=== PATIENT | female | born 1940 | race Caucasian/White ===

== ENCOUNTER 2017-08-15 09:12 | Emergency (ER) | payer OTHER ==
[~2017-08-15] VITALS: Ht 152.4 cm; Wt 65.3 kg
[~2017-08-15 09:12] MED LIST: ANTIVERT 12.5MG TAB PO; ANTIVERT12.5 MG PO; ASA 325MG EC TAB PO; ASA81 MG PO; COZAAR25 MG PO; COZAAR50 MG PO; CRESTOR10 MG PO; LIPITOR20 MG PO; PLAVIX 75MG PO; PLAVIX75 MG PO; TESSALON PERLE100 MG PO; TUSSI PRES-B L120 M1 PO; XANAX0.25 MG PO; ZITHROMAX TRI-500 MG PO
== END 2017-08-15 11:52 | disposition home or self-care (01) ==
LOC: ER 09:12
DX: M25.562 Pain in left knee (principal)

== ENCOUNTER 2017-10-16 09:28 | Emergency (ER) | payer OTHER ==
[~2017-10-16] VITALS: Ht 152.4 cm; Wt 56.7 kg
[2017-10-16] MEDS ORDERED: ATORVASTATIN CA10 MG (09:33)
== END 2017-10-16 14:31 | disposition home or self-care (01) ==
LOC: ER 09:28
DX: I95.9 Hypotension, unspecified (principal)

== ENCOUNTER 2018-05-02 09:45 | Outpatient (CLI) | payer OTHER ==
[~2018-05-02 09:45] MED LIST changes: +ATORVASTATIN CA10 MG
== END 2018-05-02 10:10 | disposition home or self-care (01) ==
LOC: SONOGRAMA 09:45
DX: R10.84 Generalized abdominal pain (principal)

== ENCOUNTER 2018-05-10 12:04 | Outpatient (CLI) | payer OTHER | END 2018-05-10 12:09 | disposition home or self-care (01) | LOC: LAB 12:04 | DX: R10.84 Generalized abdominal pain (principal); R63.4 Abnormal weight loss; Z51.81 Encounter for therapeutic drug level monitoring ==

== ENCOUNTER 2018-05-12 07:30 | Outpatient (CLI) | payer OTHER | END 2018-05-12 07:36 | disposition home or self-care (01) | LOC: TOM 07:30 | DX: R10.84 Generalized abdominal pain (principal); R63.4 Abnormal weight loss; K52.9 Noninfective gastroenteritis and colitis, unspecified; R93.2 Abnormal findings on diagnostic imaging of liver and biliary tract | CPT/HCPCS: 74160; Q9965 ==

== ENCOUNTER 2019-09-07 09:01 | Outpatient (CLI) | payer OTHER | END 2019-09-07 09:09 | disposition home or self-care (01) | LOC: MAMO-SONO 09:01 | DX: N63.11 Unspecified lump in the right breast, upper outer quadrant (principal); Z12.31 Encounter for screening mammogram for malignant neoplasm of breast; Z87.898 Personal history of other specified conditions ==

== ENCOUNTER 2019-11-15 09:03 | Outpatient (CLI) | payer OTHER | END 2019-11-15 09:08 | disposition home or self-care (01) | LOC: NUCLEAR 09:03 | DX: M81.0 Age-related osteoporosis without current pathological fracture (principal) ==

== ENCOUNTER 2020-11-11 15:22 | Emergency (ER) | payer OTHER ==
[~2020-11-11] VITALS: Ht 162.6 cm; Wt 81.6 kg
== END 2020-11-11 22:33 | disposition home or self-care (01) ==
LOC: ER 15:22
DX: R55 Syncope and collapse (principal); R11.2 Nausea with vomiting, unspecified; R53.1 Weakness; R06.02 Shortness of breath; G30.8 Other Alzheimer's disease; F02.80 Dementia in other diseases classified elsewhere, unspecified severity, without behavioral disturbance, psychotic disturbance, mood disturbance, and anxiety

== ENCOUNTER 2020-12-18 07:49 | Outpatient (CLI) | payer OTHER | END 2020-12-18 07:59 | disposition home or self-care (01) | LOC: RAD 07:49 | PROVIDERS: ATTEND Internal Medicine Gastroenterology | DX: K30 Functional dyspepsia (principal) ==

== ENCOUNTER 2021-01-21 08:43 | Emergency (ER) | payer OTHER ==
[~2021-01-21] VITALS: Ht 157.5 cm; Wt 63.5 kg
[2021-01-21] MEDS ORDERED: DIOVAN40 MG (08:56)
[2021-01-21] MEDS ORDERED: LIPITOR40 M1 (08:57)
[2021-01-21] MEDS ORDERED: COZAAR100 MG (08:57)
[2021-01-21] MEDS ORDERED: TOPROL XL50 M1 (08:57)
[2021-01-21] MEDS ORDERED: AMLOD-VALSA-HC1 EACH (08:58)
[2021-01-21] MEDS ORDERED: CIPRO500 MG PO (13:27)
== END 2021-01-21 13:54 | disposition home or self-care (01) ==
LOC: ER 08:43 → CPU-OBS 09:37 → ER 13:54
DX: R42 Dizziness and giddiness (principal); R51.9 Headache, unspecified; I10 Essential (primary) hypertension

== ENCOUNTER 2021-09-10 11:32 | Emergency (ER) | payer OTHER ==
[~2021-09-10] VITALS: Ht 149.9 cm; Wt 57.6 kg
[~2021-09-10 11:32] MED LIST changes: +AMLOD-VALSA-HC1 EACH; +CIPRO500 MG PO; +COZAAR100 MG; +DIOVAN40 MG; +LIPITOR40 M1; +TOPROL XL50 M1
== END 2021-09-10 19:31 | disposition home or self-care (01) ==
LOC: ER 11:32
DX: R07.9 Chest pain, unspecified (principal)

== ENCOUNTER 2023-01-21 09:15 | Emergency (ER) | payer OTHER ==
[~2023-01-21] VITALS: Ht 152.4 cm; Wt 63.5 kg
== END 2023-01-21 14:27 | disposition home or self-care (01) ==
LOC: ER 09:15
DX: K52.89 Other specified noninfective gastroenteritis and colitis (principal); E11.9 Type 2 diabetes mellitus without complications; I10 Essential (primary) hypertension
CPT/HCPCS: 36415; 93005; 96365; 99283; J3490

== ENCOUNTER 2023-04-06 10:53 | Emergency (ER) | payer OTHER ==
[~2023-04-06] VITALS: Ht 152.4 cm; Wt 59.9 kg
== END 2023-04-06 20:21 | disposition home or self-care (01) ==
LOC: ER 10:53
DX: S00.03XA Contusion of scalp, initial encounter (principal); W18.30XA Fall on same level, unspecified, initial encounter; Y93.9 Activity, unspecified; Y92.019 Unspecified place in single-family (private) house as the place of occurrence of the external cause; Y99.9 Unspecified external cause status

== ENCOUNTER 2023-04-19 08:58 | Outpatient (CLI) | payer OTHER | END 2023-04-19 09:04 | disposition home or self-care (01) | LOC: TOM 08:58 | PROVIDERS: ATTEND Internal Medicine Gastroenterology | DX: R10.9 Unspecified abdominal pain (principal) ==

== ENCOUNTER 2025-03-17 08:54 | Emergency (ER) | payer OTHER ==
[~2025-03-17] VITALS: Ht 152.4 cm; Wt 40.8 kg
[2025-03-17 10:02] LABS: BASO % 0.3 % (0.1-1.2); EOS # 0.00 (0.04-0.54); EOS % 0.0 % (0.7-7.0); LYMPH # 1.14 (1.18-3.74); LYMPH % 18.5 % (19.3-53.1); MEAN PLATELET VOLUME 9.80 fl (9.4-12.4); MONO # 0.49 (0.24-0.82); MONO % 8.0 % (4.7-12.5); NEUT # 4.47 (1.56-6.13); NEUT % 72.6 % (34.0-71.1); RED CELL DISTRIBUTION WIDTH 18.3 % (11.6-14.4)
[2025-03-17 10:53] LABS: ALT/SGPT 10.0 U/L (12-78); AST/SGOT 14.0 U/L (15-37); BILIRUBIN TOTAL 0.77 mg/dL (0.3-1.2); BUN CREA RATIO 29.0 (7.0-25.0); CREATININE SERUM 0.45 mg/dL (0.55-1.02); GFR 132.42; GLOBULINA 3.1 G/DL (2.4-3.5); GLUCOSE FASTING 137.0 mg/dL (65-100); OSMOLALITY SERUM 285.0 MOSM/KG (275-295)
[2025-03-17] MEDS ORDERED: KETOROLAC TROMETHAMINE 30 MG VIAL IM ONE (12:45)
[2025-03-17] MEDS ORDERED: KETOROLAC TROMETHAMINE 30 MG VIAL ONE (12:54)
== END 2025-03-17 17:40 | disposition home or self-care (01) ==
LOC: ER 08:54
PROVIDERS: Emergency Medicine
DX: G30.9 Alzheimer's disease, unspecified (principal); F02.80 Dementia in other diseases classified elsewhere, unspecified severity, without behavioral disturbance, psychotic disturbance, mood disturbance, and anxiety; M19.032 Primary osteoarthritis, left wrist; Z74.01 Bed confinement status; I10 Essential (primary) hypertension
CPT/HCPCS: 36415; 73100; 96372; 99283; J1885